=== PATIENT | female | born 1930 | race Caucasian/White ===

== ENCOUNTER 2018-08-07 09:30 | Day surgery (SDC) | payer BC, MEDICARE ==
[2018-08-07 11:20] LABS: BASOPHILS % (AUTO) 1.2 % (0-1); EOSINOPHILS # (AUTO) 0.1 X10'3 (0-0.9); HEMATOCRIT 39.8 % (35.0-45.0); HEMOGLOBIN 13.3 g/dl (12.0-16.0); LYMPHOCYTES # (AUTO) 1.3 X10'3 (1.1-4.8); LYMPHOCYTES % (AUTO) 30.6 % (21-51); MEAN CORPUSCULAR HEMOGLOBIN 33.7 PG (27.0-31.0); MEAN CORPUSCULAR HGB CONC 33.5 % (33.0-36.5); MEAN CORPUSCULAR VOLUME 100.4 FL (78-98); MEAN PLATELET VOLUME 7.8 FL (7.4-10.4); MONOCYTES # (AUTO) 0.5 X10'3 (0-0.9); MONOCYTES % (AUTO) 12.1 % (2-12); NEUTROPHILS # (AUTO) 2.2 X10'3 (1.8-7.7); NEUTROPHILS % (AUTO) 53.1 % (42-75); PLATELET COUNT 201 X10'3 (140-440); RED BLOOD COUNT 3.96 X10'6 (4.20-5.60); RED CELL DISTRIBUTION WIDTH 12.5 % (11.5-14.5); WHITE BLOOD COUNT 4.2 X10'3 (4.5-11.0)
[2018-08-07] MEDS ORDERED: LIDOcaine/PRILOcaine 5gm cream TP ONE (11:20)
[2018-08-07 11:27] LABS: HEMOGLOBIN A1C 5.7 % (4.5-6.2)
[2018-08-07 11:30] LABS: ALANINE AMINOTRANSFERASE 42 U/L (12-78); ALBUMIN 3.2 G/DL (3.4-5.0); ALBUMIN/GLOBULIN RATIO 0.8 (1.1-1.5); ALKALINE PHOSPHATASE 77 IU/L (46-116); ANION GAP 10 (8-16); ASPARTATE AMINO TRANSFERASE 30 U/L (10-37); BILIRUBIN,TOTAL 0.3 MG/DL (0.1-1.0); BLOOD UREA NITROGEN 17 MG/DL (7-18); BUN/CREATININE RATIO 15.9 (6.6-38.0); CALCIUM 8.6 MG/DL (8.5-10.1); CHLORIDE 104 MMOL/L (99-107); CREATININE 1.07 MG/DL (0.40-0.90); GLUCOSE 113 MG/DL (70-104); PREALBUMIN 19.9 MG/DL (19-36); SODIUM 142 MMOL/L (135-145); TOTAL CARBON DIOXIDE 28.5 MMOL/L (24-32); TOTAL PROTEIN 7.1 G/DL (6.4-8.2); eGFR 49 ML/MIN
--- NOTE | 2018-08-07 13:03 | NUR ---
Patient ambulated independently from lobby with a walker. Patient admitted to outpatient wound care clinic for first time visit with physician. Dressing removed, wound cleansed and Emla applied per order. Patient assessed for changes in conditions, medications and medical history. Dr. Cordero at bedside accompanied by RN. Wound assessed, time out performed by MD/RN. Wound debrided as detailed in the physician progress/procedure note. Plan of care discussed with patient. Dressings placed per MD orders. Patient instructed on the signs and symptoms of infection and to call the Wound Center if any occur or to go to the ED if we are closed: Increased pain in wound Increase in drainage from the wound Redness in the skin surrounding the wound Bleeding from the wound Temperature of 101 or greater Patient verbalized understanding of all discharge instructions and plan of care and ambulated independently out to lobby in stable condition with no sign or symptom of distress at time of discharge Addendum: 08/07/18 at 1306 by Keke Lamb RN Amended: Links added.
== END 2018-08-07 10:30 | disposition home or self-care (01) ==
LOC: WOUND CARE 09:30
PROVIDERS: ATTEND Surgery
DX: T81.89XA Other complications of procedures, not elsewhere classified, initial encounter (principal); L97.311 Non-pressure chronic ulcer of right ankle limited to breakdown of skin; L97.512 Non-pressure chronic ulcer of other part of right foot with fat layer exposed; E03.9 Hypothyroidism, unspecified; I10 Essential (primary) hypertension; Z90.710 Acquired absence of both cervix and uterus; Z79.899 Other long term (current) drug therapy; Y83.8 Other surgical procedures as the cause of abnormal reaction of the patient, or of later complication, without mention of misadventure at the time of the procedure
CPT/HCPCS: 36415; 73600; 80053; 83036; 84134; 85025; 85651; 87070; 87075; 87077; 87102; 87176; 87186; A6021; A6206; A6446

== ENCOUNTER 2018-08-15 10:29 | Day surgery (SDC) | payer MEDICARE ==
[2018-08-15] MEDS ORDERED: LIDOcaine 2% 5ml jelly ONE (11:38)
--- NOTE | 2018-08-15 13:39 | NUR ---
Patient ambulated independently from [facility] with a walker. Patient admitted to outpatient wound care for physician visit. Dressing removed, wound cleansed and lidocaine applied per order. Patient assessed for changes in conditions, medications and medical history. Dr. Cordero at bedside accompanied by RN. Wound assessed, time out performed by MD/RN. Wound debrided as detailed in the physician progress/procedure note. Plan of care discussed with patient. Dressings placed per MD orders. Patient instructed on the signs and symptoms of infection and to call the Wound Center if any occur or to go to the ED if we are closed: Increased pain in wound Increase in drainage from the wound Redness in the skin surrounding the wound Bleeding from the wound Temperature of 101 or greater Patient instructed that the weight of their body puts a large amount of pressure on their wounds. This pressure keeps the new tissue from growing and inhibits new blood vessels from forming. Explained that, if they continue to bear weight on a body part that has a wound, the time it takes to heal the wound increases, the wound may get worse or the wound may not heal at all. Patient verbalized understanding of all discharge instructions and plan of care and ambulated independently out to [facility] in stable condition with no sign or symptom of distress at time of discharge. Addendum: 08/15/18 at 1345 by Keke Lamb RN Amended: Links added.
== END 2018-08-15 12:17 | disposition home or self-care (01) ==
LOC: WOUND CARE 10:29
PROVIDERS: ATTEND Surgery
DX: T81.89XD Other complications of procedures, not elsewhere classified, subsequent encounter (principal); L97.311 Non-pressure chronic ulcer of right ankle limited to breakdown of skin; L97.512 Non-pressure chronic ulcer of other part of right foot with fat layer exposed; E03.9 Hypothyroidism, unspecified; I10 Essential (primary) hypertension; Z90.710 Acquired absence of both cervix and uterus; Z79.899 Other long term (current) drug therapy; Y83.8 Other surgical procedures as the cause of abnormal reaction of the patient, or of later complication, without mention of misadventure at the time of the procedure
CPT/HCPCS: 11042; A6209; A6021; A6206; A6446

== ENCOUNTER 2018-08-22 09:34 | Day surgery (SDC) | payer MEDICARE ==
[2018-08-22] MEDS ORDERED: LIDOcaine/PRILOcaine 5gm cream TP ONE (10:06)
--- NOTE | 2018-08-22 11:30 | NUR ---
Patient ambulated with rolling walker accompanied by her from [facility] and was admitted to outpatient wound care for physician visit with Rush Cordero MD. Dressing removed, wound cleansed and Emla cream applied per order. Patient assessed for changes in conditions, medications and medical history. 1030 - Dr. Cordero at bedside accompanied by RN. Wound assessed, time out performed by MD/RN. Wound debrided as detailed in the physician progress/procedure note. Plan of care discussed with patient. Dressings placed per MD orders. Patient instructed on the signs and symptoms of infection and to call the Wound Center if any occur or to go to the ED if we are closed: Increased pain in wound Increase in drainage from the wound Redness in the skin surrounding the wound Bleeding from the wound Temperature of 101 or greater Patient instructed that the weight of their body puts a large amount of pressure on their wounds. This pressure keeps the new tissue from growing and inhibits new blood vessels from forming. Explained that, if they continue to bear weight on a body part that has a wound, the time it takes to heal the wound increases, the wound may get worse or the wound may not heal at all. Patient and verbalized understanding of all discharge instructions and plan of care and patient is rolled on her walker seated by her out to [facility] in stable condition with no sign or symptom of distress at time of discharge.
[2018-08-22] MEDS ORDERED: CIPR-259 PO (13:44)
[2018-08-22] MEDS ORDERED: MIRT30TA8 PO (14:10)
[2018-08-22] MEDS ORDERED: LOSA100T57 PO (14:10)
[2018-08-22] MEDS ORDERED: AMLO5TAB PO (14:10)
[2018-08-22] MEDS ORDERED: CLON-528 PO (14:10)
[2018-08-22] MEDS ORDERED: LYR75C PO (14:10)
[2018-08-22] MEDS ORDERED: MINO2.5T19 PO (14:10)
[2018-08-22] MEDS ORDERED: CARV25TA PO (14:10)
[2018-08-22] MEDS ORDERED: OMEP40CA37 PO (14:10)
[2018-08-22] MEDS ORDERED: MEMA28CA PO (14:10)
[2018-08-22] MEDS ORDERED: SYN0.088T PO (14:10)
[2018-08-22] MEDS ORDERED: COU3T PO ×2 (14:10)
[2018-08-22] MEDS ORDERED: MELO-100 PO (14:10)
[2018-08-22] MEDS ORDERED: VENL-190 (14:10)
[2018-08-22] MEDS ORDERED: HYDR-4353 PO (14:10)
== END 2018-08-22 11:40 | disposition home or self-care (01) ==
LOC: WOUND CARE 09:34
PROVIDERS: ATTEND Surgery
DX: T81.89XD Other complications of procedures, not elsewhere classified, subsequent encounter (principal); L97.312 Non-pressure chronic ulcer of right ankle with fat layer exposed; I83.013 Varicose veins of right lower extremity with ulcer of ankle; E03.9 Hypothyroidism, unspecified; I10 Essential (primary) hypertension; Z90.710 Acquired absence of both cervix and uterus; Z79.899 Other long term (current) drug therapy; Y83.8 Other surgical procedures as the cause of abnormal reaction of the patient, or of later complication, without mention of misadventure at the time of the procedure
CPT/HCPCS: A6021; A6206; A6212; A6446

== ENCOUNTER 2018-08-29 10:45 | Day surgery (SDC) | payer MEDICARE ==
[~2018-08-29 10:45] MED LIST: AMLO5TAB PO; CARV25TA PO; CIPR-259 PO; CLON-528 PO; COU3T PO; HYDR-4353 PO; LOSA100T57 PO; LYR75C PO; MELO-100 PO; MEMA28CA PO; MINO2.5T19 PO; MIRT30TA8 PO; OMEP40CA37 PO; SYN0.088T PO; VENL-190
[2018-08-29] MEDS ORDERED: LIDOcaine 2% 5ml jelly ONE (11:31)
--- NOTE | 2018-08-29 12:49 | NUR ---
Patient ambulated independently from [facility] and was admitted to outpatient wound care for physician visit. Dressings removed, wound cleansed. Patient assessment completed with review of patient's medical history and current medications. -1140 Dr. Cordero at bedside accompanied by RN. Wound assessed, time-out performed by MD/RN. Wound debrided as detailed in the physician progress/procedure note. Plan of care discussed with patient. Dressings placed per MD orders. Patient instructed on the signs and symptoms of infection and to call the Wound Center if any occur or to go to the ED if we are closed: Increased pain in the wound Increase in drainage from the wound Redness in the skin surrounding the wound Bleeding from the wound Temperature of 101F or greater Patient instructed that the weight of their body puts a large amount of pressure on their wounds. This pressure keeps the new tissue from growing and inhibits new blood vessels from forming. Explained that, if they continue to bear weight on a body part that has a wound, the time it takes to heal the wound increases, the wound may get worse, or the wound may not heal at all. Patient verbalized understanding of all discharge instructions and plan of care. Patient ambulated independently out to [facility] in stable condition with no signs or symptoms of distress at time of discharge.
== END 2018-08-29 12:02 | disposition home or self-care (01) ==
LOC: WOUND CARE 10:45
PROVIDERS: ATTEND Surgery
DX: T81.89XD Other complications of procedures, not elsewhere classified, subsequent encounter (principal); L97.312 Non-pressure chronic ulcer of right ankle with fat layer exposed; I83.013 Varicose veins of right lower extremity with ulcer of ankle; E03.9 Hypothyroidism, unspecified; I10 Essential (primary) hypertension; Z90.710 Acquired absence of both cervix and uterus; Z79.899 Other long term (current) drug therapy; Y83.8 Other surgical procedures as the cause of abnormal reaction of the patient, or of later complication, without mention of misadventure at the time of the procedure
CPT/HCPCS: 15271; A6222; Q4133; A6206; A6446

== ENCOUNTER 2018-09-12 10:35 | Day surgery (SDC) | payer MEDICARE ==
[2018-09-12] MEDS ORDERED: LIDOcaine/PRILOcaine 5gm cream TP ONE (10:55)
--- NOTE | 2018-09-12 13:40 | NUR ---
Patient ambulated independently from [facility] and was admitted to outpatient wound care for physician visit with Rush Cordero MD. Dressing removed, wound cleansed and lidocaine applied per order. Patient assessed for changes in conditions, medications and medical history. Dr. Cordero at bedside accompanied by RN. Wound assessed, time out performed by MD/RN. Wound debrided as detailed in the physician progress/procedure note. Plan of care discussed with patient. Dressings placed per MD orders. Patient instructed on the signs and symptoms of infection and to call the Wound Center if any occur or to go to the ED if we are closed: Increased pain in wound Increase in drainage from the wound Redness in the skin surrounding the wound Bleeding from the wound Temperature of 101 or greater Patient instructed that the weight of their body puts a large amount of pressure on their wounds. This pressure keeps the new tissue from growing and inhibits new blood vessels from forming. Explained that, if they continue to bear weight on a body part that has a wound, the time it takes to heal the wound increases, the wound may get worse or the wound may not heal at all. Patient verbalized understanding of all discharge instructions and plan of care and ambulated independently out to [facility] in stable condition with no sign or symptom of distress at time of discharge. Addendum: 09/12/18 at 1341 by Keke Lamb RN Amended: Links added.
== END 2018-09-12 11:39 | disposition home or self-care (01) ==
LOC: WOUND CARE 10:35
PROVIDERS: ATTEND Surgery
DX: T81.89XD Other complications of procedures, not elsewhere classified, subsequent encounter (principal); L97.312 Non-pressure chronic ulcer of right ankle with fat layer exposed; I83.013 Varicose veins of right lower extremity with ulcer of ankle; E03.9 Hypothyroidism, unspecified; I10 Essential (primary) hypertension; Z90.710 Acquired absence of both cervix and uterus; Z79.899 Other long term (current) drug therapy; Y83.8 Other surgical procedures as the cause of abnormal reaction of the patient, or of later complication, without mention of misadventure at the time of the procedure
CPT/HCPCS: 15271; A6209; A6222; Q4133; A6250; A6446

== ENCOUNTER 2018-09-19 10:32 | Outpatient (CLI) | payer MEDICARE ==
[2018-09-19] MEDS ORDERED: LIDOcaine/PRILOcaine 5gm cream TP ONE (11:12)
--- NOTE | 2018-09-19 12:31 | NUR ---
Patient ambulated independently accompanied by her from [facility] and was admitted to outpatient wound care for physician visit with Rush Cordero MD. Dressing removed, wound cleansed and Emla cream applied per order. Patient assessed for changes in conditions, medications and medical history. 1135 - Dr. Cordero at bedside accompanied by RN. Wound assessed by MD; orders written. Plan of care discussed with patient. Dressings placed per MD orders. Patient instructed on the signs and symptoms of infection and to call the Wound Center if any occur or to go to the ED if we are closed: Increased pain in wound Increase in drainage from the wound Redness in the skin surrounding the wound Bleeding from the wound Temperature of 101 or greater Patient instructed that the weight of their body puts a large amount of pressure on their wounds. This pressure keeps the new tissue from growing and inhibits new blood vessels from forming. Explained that, if they continue to bear weight on a body part that has a wound, the time it takes to heal the wound increases, the wound may get worse or the wound may not heal at all. Patient verbalized understanding of all discharge instructions and plan of care and ambulated independently accompanied by her out to [facility] in stable condition with no sign or symptom of distress at time of discharge.
== END 2018-09-19 12:12 | disposition home or self-care (01) ==
LOC: WOUND CARE 10:32
PROVIDERS: ATTEND Surgery
DX: T81.89XD Other complications of procedures, not elsewhere classified, subsequent encounter (principal); L97.312 Non-pressure chronic ulcer of right ankle with fat layer exposed; I83.013 Varicose veins of right lower extremity with ulcer of ankle; E03.9 Hypothyroidism, unspecified; I10 Essential (primary) hypertension; Z90.710 Acquired absence of both cervix and uterus; Z79.899 Other long term (current) drug therapy; Y83.8 Other surgical procedures as the cause of abnormal reaction of the patient, or of later complication, without mention of misadventure at the time of the procedure
CPT/HCPCS: A6209; G0463; A6021; A6206; A6446

== ENCOUNTER 2018-09-26 10:35 | Outpatient (CLI) | payer MEDICARE ==
[~2018-09-26 10:35] MED LIST changes: -CIPR-259 PO
[2018-09-26] MEDS ORDERED: LIDOcaine/PRILOcaine 5gm cream TP ONE (11:22)
--- NOTE | 2018-09-26 13:57 | NUR ---
Patient ambulated independently from [facility] and was admitted to outpatient wound care for physician visit with Rush Cordero MD. Dressing removed, wound cleansed and lidocaine applied per order. Patient assessed for changes in conditions, medications and medical history. Dr. Cordero at bedside accompanied by RN. Wound assessed and no debridement was done. Plan of care discussed with patient. Dressings placed per MD orders. Patient instructed on the signs and symptoms of infection and to call the Wound Center if any occur or to go to the ED if we are closed: Increased pain in wound Increase in drainage from the wound Redness in the skin surrounding the wound Bleeding from the wound Temperature of 101 or greater Patient instructed that the weight of their body puts a large amount of pressure on their wounds. This pressure keeps the new tissue from growing and inhibits new blood vessels from forming. Explained that, if they continue to bear weight on a body part that has a wound, the time it takes to heal the wound increases, the wound may get worse or the wound may not heal at all. Patient verbalized understanding of all discharge instructions and plan of care and ambulated independently out to [facility] in stable condition with no sign or symptom of distress at time of discharge. Addendum: 09/26/18 at 1358 by Keke Lamb RN Amended: Links added.
== END 2018-09-26 11:36 | disposition home or self-care (01) ==
LOC: WOUND CARE 10:35
PROVIDERS: ATTEND Surgery
DX: T81.89XD Other complications of procedures, not elsewhere classified, subsequent encounter (principal); L97.312 Non-pressure chronic ulcer of right ankle with fat layer exposed; I83.013 Varicose veins of right lower extremity with ulcer of ankle; E03.9 Hypothyroidism, unspecified; I10 Essential (primary) hypertension; Z90.710 Acquired absence of both cervix and uterus; Z79.899 Other long term (current) drug therapy; Y83.8 Other surgical procedures as the cause of abnormal reaction of the patient, or of later complication, without mention of misadventure at the time of the procedure
CPT/HCPCS: A6209; G0463; A6021; A6206; A6446

== ENCOUNTER 2018-10-03 10:30 | Day surgery (SDC) | payer MEDICARE ==
[2018-10-03] MEDS ORDERED: LIDOcaine/PRILOcaine 5gm cream TP ONE (10:58)
--- NOTE | 2018-10-03 11:49 | NUR ---
Patient ambulated independently from [facility] and was admitted to outpatient wound care for physician visit. Dressings removed, wound cleansed. Patient assessment completed with review of patient's medical history and current medications. 1130-Dr. Cordero at bedside accompanied by RN. Wound assessed, time-out performed by MD/RN. Wound debrided as detailed in the physician progress/procedure note. Plan of care discussed with patient. Dressings placed per MD orders. Patient instructed on the signs and symptoms of infection and to call the Wound Center if any occur or to go to the ED if we are closed: Increased pain in the wound Increase in drainage from the wound Redness in the skin surrounding the wound Bleeding from the wound Temperature of 101F or greater Patient instructed that the weight of their body puts a large amount of pressure on their wounds. This pressure keeps the new tissue from growing and inhibits new blood vessels from forming. Explained that, if they continue to bear weight on a body part that has a wound, the time it takes to heal the wound increases, the wound may get worse, or the wound may not heal at all. Patient verbalized understanding of all discharge instructions and plan of care. Patient ambulated independently out to [facility] in stable condition with no signs or symptoms of distress at time of discharge.
== END 2018-10-03 11:39 | disposition home or self-care (01) ==
LOC: WOUND CARE 10:30
PROVIDERS: ATTEND Surgery
DX: T81.89XD Other complications of procedures, not elsewhere classified, subsequent encounter (principal); L97.312 Non-pressure chronic ulcer of right ankle with fat layer exposed; I83.013 Varicose veins of right lower extremity with ulcer of ankle; E03.9 Hypothyroidism, unspecified; I10 Essential (primary) hypertension; Z90.710 Acquired absence of both cervix and uterus; Z79.899 Other long term (current) drug therapy; Y83.8 Other surgical procedures as the cause of abnormal reaction of the patient, or of later complication, without mention of misadventure at the time of the procedure
CPT/HCPCS: 97597; A6222; A6021; A6212; A6446

== ENCOUNTER 2018-10-11 10:30 | Day surgery (SDC) | payer MEDICARE ==
[2018-10-11] MEDS ORDERED: LIDOcaine/PRILOcaine 5gm cream TP ONE (11:58)
--- NOTE | 2018-10-11 16:28 | NUR ---
1200 Patient ambulated safely into [facility]. Patient admitted to outpatient wound care clinic for follow-up visit with physician. Dressing removed, wound cleansed. Patient assessed for changes in conditions, medications and medical history. Patient showed no s/s of distress at time of assessment. 9712 at bedside accompanied by RN. Wounds assessed, time out performed and debridement done today as detailed in the physician progress/procedure note. Plan of care discussed with patient. Dressings placed per MD orders. Patient instructed on the signs and symptoms of infection and to call the Wound Center if any occur or to go to the ED if we are closed: Increased pain in wound Increase in drainage from the wound Redness in the skin surrounding the wound Bleeding from the wound Temperature of 101 or greater Patient instructed that the weight of their body puts a large amount of pressure on their wounds. This pressure keeps the new tissue from growing and inhibits new blood vessels from forming. Explained that, if they continue to bear weight on a body part that has a wound, the time it takes to heal the wound increases, the wound may get worse or the wound may not heal at all. Patient verbalized understanding of all discharge instructions and plan of care. Patient ambulated independently out to [facility] and is in stable condition with no sign or symptom of distress at time of discharge.
== END 2018-10-11 12:50 | disposition home or self-care (01) ==
LOC: WOUND CARE 10:30
PROVIDERS: ATTEND Surgery
DX: T81.89XD Other complications of procedures, not elsewhere classified, subsequent encounter (principal); L97.312 Non-pressure chronic ulcer of right ankle with fat layer exposed; I83.013 Varicose veins of right lower extremity with ulcer of ankle; E03.9 Hypothyroidism, unspecified; I10 Essential (primary) hypertension; Z90.710 Acquired absence of both cervix and uterus; Z79.899 Other long term (current) drug therapy; Y83.8 Other surgical procedures as the cause of abnormal reaction of the patient, or of later complication, without mention of misadventure at the time of the procedure
CPT/HCPCS: 97597; A6021; A6206; A6212

== ENCOUNTER 2018-10-17 10:27 | Outpatient (CLI) | payer MEDICARE ==
--- NOTE | 2018-10-17 12:24 | NUR ---
Patient ambulated independently from [facility] and was admitted to outpatient wound care for physician visit with Rush Cordero MD. Dressing removed and wound cleansed. Patient assessed for changes in conditions, medications and medical history. Dr. Cordero at bedside accompanied by RN. Wound assessed and no debridement was done. Plan of care discussed with patient. Dressings placed per MD orders. Patient instructed on the signs and symptoms of infection and to call the Wound Center if any occur or to go to the ED if we are closed: Increased pain in wound Increase in drainage from the wound Redness in the skin surrounding the wound Bleeding from the wound Temperature of 101 or greater Patient instructed that the weight of their body puts a large amount of pressure on their wounds. This pressure keeps the new tissue from growing and inhibits new blood vessels from forming. Explained that, if they continue to bear weight on a body part that has a wound, the time it takes to heal the wound increases, the wound may get worse or the wound may not heal at all. Patient verbalized understanding of all discharge instructions and plan of care and ambulated independently out to [facility] in stable condition with no sign or symptom of distress at time of discharge. Addendum: 10/17/18 at 1229 by Keke Lamb RN Amended: Links added.
== END 2018-10-17 12:15 | disposition home or self-care (01) ==
LOC: WOUND CARE 10:27 → EDSTATUS 10:30 → WOUND CARE 12:15
PROVIDERS: ATTEND Surgery
DX: T81.89XD Other complications of procedures, not elsewhere classified, subsequent encounter (principal); L97.312 Non-pressure chronic ulcer of right ankle with fat layer exposed; I83.013 Varicose veins of right lower extremity with ulcer of ankle; E03.9 Hypothyroidism, unspecified; I10 Essential (primary) hypertension; Z90.710 Acquired absence of both cervix and uterus; Z79.899 Other long term (current) drug therapy; Y83.8 Other surgical procedures as the cause of abnormal reaction of the patient, or of later complication, without mention of misadventure at the time of the procedure
CPT/HCPCS: A6222; G0463; A6021; A6212

== ENCOUNTER 2018-10-24 10:26 | Day surgery (SDC) | payer MEDICARE ==
[2018-10-24] MEDS ORDERED: LIDOcaine/PRILOcaine 5gm cream TP ONE (10:53)
--- NOTE | 2018-10-24 11:40 | NUR ---
Patient ambulated independently from lob accompanied by and was admitted to outpatient wound care for physician visit with Rush Cordero MD. Dressing removed, wound cleansed. Patient assessed for changes in conditions, medications and medical history. 1100 - Dr. Cordero at bedside accompanied by RN. Wound assessed, time out performed by MD/RN. Wound debrided and procedure performed as detailed in the physician progress/procedure note. Plan of care discussed with patient. Dressings placed per MD orders. Patient instructed on the signs and symptoms of infection and to call the Wound Center if any occur or to go to the ED if we are closed: Increased pain in wound Increase in drainage from the wound Redness in the skin surrounding the wound Bleeding from the wound Temperature of 101 or greater Patient instructed that the weight of their body puts a large amount of pressure on their wounds. This pressure keeps the new tissue from growing and inhibits new blood vessels from forming. Explained that, if they continue to bear weight on a body part that has a wound, the time it takes to heal the wound increases, the wound may get worse or the wound may not heal at all. Patient verbalized understanding of all discharge instructions and plan of care and ambulated independently out to [facility] in stable condition with no sign or symptom of distress at time of discharge.
== END 2018-10-24 12:05 | disposition home or self-care (01) ==
LOC: WOUND CARE 10:26
PROVIDERS: ATTEND Surgery
DX: T81.89XD Other complications of procedures, not elsewhere classified, subsequent encounter (principal); L97.312 Non-pressure chronic ulcer of right ankle with fat layer exposed; I83.013 Varicose veins of right lower extremity with ulcer of ankle; E03.9 Hypothyroidism, unspecified; I10 Essential (primary) hypertension; Z90.710 Acquired absence of both cervix and uterus; Z79.899 Other long term (current) drug therapy; Y83.8 Other surgical procedures as the cause of abnormal reaction of the patient, or of later complication, without mention of misadventure at the time of the procedure
CPT/HCPCS: 15271; A6209; A6222; Q4133; A6250; A6446

== ENCOUNTER 2018-10-31 10:30 | Outpatient (CLI) | payer MEDICARE ==
[2018-10-31] MEDS ORDERED: LIDOcaine/PRILOcaine 5gm cream TP ONE (11:32)
--- NOTE | 2018-10-31 12:02 | NUR ---
Patient ambulated independently from [facility] and was admitted to outpatient wound care for physician visit with Rush Cordero MD. Dressing removed, wound cleansed and Emla cream applied per order. Patient assessed for changes in conditions, medications and medical history. Dr. Cordero at bedside accompanied by RN. Wound assessed and no debridement was done. Plan of care discussed with patient. Dressings placed per MD orders. Patient instructed on the signs and symptoms of infection and to call the Wound Center if any occur or to go to the ED if we are closed: Increased pain in wound Increase in drainage from the wound Redness in the skin surrounding the wound Bleeding from the wound Temperature of 101 or greater Patient instructed that the weight of their body puts a large amount of pressure on their wounds. This pressure keeps the new tissue from growing and inhibits new blood vessels from forming. Explained that, if they continue to bear weight on a body part that has a wound, the time it takes to heal the wound increases, the wound may get worse or the wound may not heal at all. Patient verbalized understanding of all discharge instructions and plan of care and ambulated independently out to [facility] in stable condition with no sign or symptom of distress at time of discharge. Addendum: 10/31/18 at 1203 by Keke Lamb RN Amended: Links added.
== END 2018-10-31 11:57 | disposition home or self-care (01) ==
LOC: WOUND CARE 10:30 → EDSTATUS 10:30 → WOUND CARE 11:57
PROVIDERS: ATTEND Surgery
DX: T81.89XD Other complications of procedures, not elsewhere classified, subsequent encounter (principal); I83.013 Varicose veins of right lower extremity with ulcer of ankle; L97.312 Non-pressure chronic ulcer of right ankle with fat layer exposed; E03.9 Hypothyroidism, unspecified; I10 Essential (primary) hypertension; Z90.710 Acquired absence of both cervix and uterus; Z79.899 Other long term (current) drug therapy; Y83.8 Other surgical procedures as the cause of abnormal reaction of the patient, or of later complication, without mention of misadventure at the time of the procedure
CPT/HCPCS: A6021; A6206; A6212; G0463

== ENCOUNTER 2018-11-07 10:25 | Day surgery (SDC) | payer MEDICARE ==
--- NOTE | 2018-11-07 12:00 | NUR ---
Patient ambulated independently accompanied by from [facility] and was admitted to outpatient wound care for physician visit with Rush Cordero MD. Dressing removed, wound cleansed. Patient assessed for changes in conditions, medications and medical history. 1135 - Dr. Cordero at bedside accompanied by RN. Wound assessed, time out performed by MD/RN. Wound debrided as detailed in the physician progress/procedure note. Plan of care discussed with patient. Dressings placed per MD orders. Patient instructed on the signs and symptoms of infection and to call the Wound Center if any occur or to go to the ED if we are closed: Increased pain in wound Increase in drainage from the wound Redness in the skin surrounding the wound Bleeding from the wound Temperature of 101 or greater Patient instructed that the weight of their body puts a large amount of pressure on their wounds. This pressure keeps the new tissue from growing and inhibits new blood vessels from forming. Explained that, if they continue to bear weight on a body part that has a wound, the time it takes to heal the wound increases, the wound may get worse or the wound may not heal at all. Patient verbalized understanding of all discharge instructions and plan of care and ambulated independently accompanied by her out to [facility] in stable condition with no sign or symptom of distress at time of discharge.
== END 2018-11-07 11:50 | disposition home or self-care (01) ==
LOC: WOUND CARE 10:25
PROVIDERS: ATTEND Surgery
DX: T81.89XD Other complications of procedures, not elsewhere classified, subsequent encounter (principal); I83.013 Varicose veins of right lower extremity with ulcer of ankle; L97.312 Non-pressure chronic ulcer of right ankle with fat layer exposed; E03.9 Hypothyroidism, unspecified; I10 Essential (primary) hypertension; Z90.710 Acquired absence of both cervix and uterus; Z79.899 Other long term (current) drug therapy; Y83.8 Other surgical procedures as the cause of abnormal reaction of the patient, or of later complication, without mention of misadventure at the time of the procedure
CPT/HCPCS: 97597; A6021; A6206; A6212

== ENCOUNTER 2018-11-14 10:26 | Day surgery (SDC) | payer MEDICARE ==
[2018-11-14] MEDS ORDERED: LIDOcaine/PRILOcaine 5gm cream TP ONE (10:56)
--- NOTE | 2018-11-14 13:10 | NUR ---
Patient ambulated independently from [facility] and was admitted to outpatient wound care for physician visit with Rush Cordero MD. Dressing removed, wound cleansed and lidocaine applied per order. Patient assessed for changes in conditions, medications and medical history. Dr. Cordero at bedside accompanied by RN. Wound assessed, time out performed by MD/RN. Wound debrided as detailed in the physician progress/procedure note. Plan of care discussed with patient. Dressings placed per MD orders. Patient instructed on the signs and symptoms of infection and to call the Wound Center if any occur or to go to the ED if we are closed: Increased pain in wound Increase in drainage from the wound Redness in the skin surrounding the wound Bleeding from the wound Temperature of 101 or greater Patient instructed that the weight of their body puts a large amount of pressure on their wounds. This pressure keeps the new tissue from growing and inhibits new blood vessels from forming. Explained that, if they continue to bear weight on a body part that has a wound, the time it takes to heal the wound increases, the wound may get worse or the wound may not heal at all. Patient verbalized understanding of all discharge instructions and plan of care and ambulated independently out to [facility] in stable condition with no sign or symptom of distress at time of discharge. Addendum: 11/14/18 at 1311 by Keke Lamb RN Amended: Links added.
== END 2018-11-14 11:00 | disposition home or self-care (01) ==
LOC: WOUND CARE 10:26
PROVIDERS: ATTEND Surgery
DX: T81.89XD Other complications of procedures, not elsewhere classified, subsequent encounter (principal); I83.013 Varicose veins of right lower extremity with ulcer of ankle; L97.312 Non-pressure chronic ulcer of right ankle with fat layer exposed; E03.9 Hypothyroidism, unspecified; I10 Essential (primary) hypertension; Z90.710 Acquired absence of both cervix and uterus; Z79.899 Other long term (current) drug therapy; Y83.8 Other surgical procedures as the cause of abnormal reaction of the patient, or of later complication, without mention of misadventure at the time of the procedure
CPT/HCPCS: A6209; C5271; Q4102; A6250

== ENCOUNTER 2018-11-21 10:10 | Outpatient (CLI) | payer MEDICARE ==
--- NOTE | 2018-11-21 15:37 | NUR ---
Patient ambulated independently from [facility] and was admitted to outpatient wound care for physician visit with Rush Cordero MD. Dressing removed and wound cleansed. Patient assessed for changes in conditions, medications and medical history. Dr. Cordero at bedside accompanied by RN. Wound assessed and no debridement was done. Plan of care discussed with patient. Dressings placed per MD orders. Patient instructed on the signs and symptoms of infection and to call the Wound Center if any occur or to go to the ED if we are closed: Increased pain in wound Increase in drainage from the wound Redness in the skin surrounding the wound Bleeding from the wound Temperature of 101 or greater Patient instructed that the weight of their body puts a large amount of pressure on their wounds. This pressure keeps the new tissue from growing and inhibits new blood vessels from forming. Explained that, if they continue to bear weight on a body part that has a wound, the time it takes to heal the wound increases, the wound may get worse or the wound may not heal at all. Patient verbalized understanding of all discharge instructions and plan of care and ambulated independently out to [facility] in stable condition with no sign or symptom of distress at time of discharge. Addendum: 11/21/18 at 1540 by Keke Lamb RN Amended: Links added.
== END 2018-11-21 12:00 | disposition home or self-care (01) ==
LOC: WOUND CARE 10:10 → EDSTATUS 10:30 → WOUND CARE 12:00
PROVIDERS: ATTEND Surgery
DX: T81.89XD Other complications of procedures, not elsewhere classified, subsequent encounter (principal); I83.013 Varicose veins of right lower extremity with ulcer of ankle; L97.312 Non-pressure chronic ulcer of right ankle with fat layer exposed; E03.9 Hypothyroidism, unspecified; I10 Essential (primary) hypertension; Z90.710 Acquired absence of both cervix and uterus; Z79.899 Other long term (current) drug therapy; Y83.8 Other surgical procedures as the cause of abnormal reaction of the patient, or of later complication, without mention of misadventure at the time of the procedure
CPT/HCPCS: A6206; A6212; A6446; G0463

== ENCOUNTER 2018-11-28 10:30 | Day surgery (SDC) | payer MEDICARE ==
[2018-11-28] MEDS ORDERED: LIDOcaine/PRILOcaine 5gm cream TP ONE (10:40)
--- NOTE | 2018-11-28 13:57 | NUR ---
Patient ambulated independently from lobby with a walker. Patient admitted to outpatient wound care clinic for physician visit with Rush Cordero MD. Dressing removed, wound cleansed and Emla cream applied per order. Patient assessed for changes in conditions, medications and medical history. Dr. Cordero at bedside accompanied by RN. Wound assessed, time out performed by MD/RN. Wound debrided as detailed in the physician progress/procedure note. Plan of care discussed with patient. Dressings placed per MD orders. Patient instructed on the signs and symptoms of infection and to call the Wound Center if any occur or to go to the ED if we are closed: Increased pain in wound Increase in drainage from the wound Redness in the skin surrounding the wound Bleeding from the wound Temperature of 101 or greater Patient instructed that the weight of their body puts a large amount of pressure on their wounds. This pressure keeps the new tissue from growing and inhibits new blood vessels from forming. Explained that, if they continue to bear weight on a body part that has a wound, the time it takes to heal the wound increases, the wound may get worse or the wound may not heal at all. Patient verbalized understanding of all discharge instructions and plan of care and ambulated independently out to lobby in stable condition with no sign or symptom of distress at time of discharge. Addendum: 11/28/18 at 1400 by Keke Lamb RN Amended: Links added.
== END 2018-11-28 11:36 | disposition home or self-care (01) ==
LOC: WOUND CARE 10:30
PROVIDERS: ATTEND Surgery
DX: T81.89XD Other complications of procedures, not elsewhere classified, subsequent encounter (principal); I83.013 Varicose veins of right lower extremity with ulcer of ankle; L97.312 Non-pressure chronic ulcer of right ankle with fat layer exposed; E03.9 Hypothyroidism, unspecified; I10 Essential (primary) hypertension; Z90.710 Acquired absence of both cervix and uterus; Z79.899 Other long term (current) drug therapy; Y83.8 Other surgical procedures as the cause of abnormal reaction of the patient, or of later complication, without mention of misadventure at the time of the procedure
CPT/HCPCS: 97597; A6209; A6021; A6206

== ENCOUNTER 2018-12-12 10:07 | Day surgery (SDC) | payer MEDICARE ==
[2018-12-12] MEDS ORDERED: LIDOcaine/PRILOcaine 5gm cream TP ONE (11:06)
--- NOTE | 2018-12-12 14:06 | NUR ---
Patient ambulated independently from [facility] and was admitted to outpatient wound care for physician visit with Rush Cordero MD. Dressing removed, wound cleansed and Emla cream applied per order. Patient assessed for changes in conditions, medications and medical history. Dr. Cordero at bedside accompanied by RN. Wound assessed, time out performed by MD/RN. Wound debrided as detailed in the physician progress/procedure note. Plan of care discussed with patient. Dressings placed per MD orders. Patient instructed on the signs and symptoms of infection and to call the Wound Center if any occur or to go to the ED if we are closed: Increased pain in wound Increase in drainage from the wound Redness in the skin surrounding the wound Bleeding from the wound Temperature of 101 or greater Patient instructed that the weight of their body puts a large amount of pressure on their wounds. This pressure keeps the new tissue from growing and inhibits new blood vessels from forming. Explained that, if they continue to bear weight on a body part that has a wound, the time it takes to heal the wound increases, the wound may get worse or the wound may not heal at all. Patient verbalized understanding of all discharge instructions and plan of care and ambulated independently out to [facility] in stable condition with no sign or symptom of distress at time of discharge. Addendum: 12/12/18 at 1407 by Keke Lamb RN Amended: Links added.
== END 2018-12-12 12:15 | disposition home or self-care (01) ==
LOC: WOUND CARE 10:07
PROVIDERS: ATTEND Surgery
DX: T81.89XD Other complications of procedures, not elsewhere classified, subsequent encounter (principal); I83.013 Varicose veins of right lower extremity with ulcer of ankle; L97.312 Non-pressure chronic ulcer of right ankle with fat layer exposed; E03.9 Hypothyroidism, unspecified; I10 Essential (primary) hypertension; Z90.710 Acquired absence of both cervix and uterus; Z79.899 Other long term (current) drug therapy; Y83.8 Other surgical procedures as the cause of abnormal reaction of the patient, or of later complication, without mention of misadventure at the time of the procedure
CPT/HCPCS: 97597; A6209; A6021; A6206; A6446

== ENCOUNTER 2018-12-19 10:24 | Day surgery (SDC) | payer MEDICARE ==
[2018-12-19] MEDS ORDERED: LIDOcaine/PRILOcaine 5gm cream TP ONE (11:00)
--- NOTE | 2018-12-19 14:08 | NUR ---
Patient ambulated independently from [facility] and was admitted to outpatient wound care for physician visit with Rush Cordero MD. Dressing removed, wound cleansed and Emla cream applied per order. Patient assessed for changes in conditions, medications and medical history. Dr. Cordero at bedside accompanied by RN. Wound assessed, time out performed by MD/RN. Wound debrided as detailed in the physician progress/procedure note. did a marker for an x-ray with a staple. X-ray done and staple removed by . Plan of care discussed with patient. Dressings placed per MD orders. Patient instructed on the signs and symptoms of infection and to call the Wound Center if any occur or to go to the ED if we are closed: Increased pain in wound Increase in drainage from the wound Redness in the skin surrounding the wound Bleeding from the wound Temperature of 101 or greater Patient instructed that the weight of their body puts a large amount of pressure on their wounds. This pressure keeps the new tissue from growing and inhibits new blood vessels from forming. Explained that, if they continue to bear weight on a body part that has a wound, the time it takes to heal the wound increases, the wound may get worse or the wound may not heal at all. Patient verbalized understanding of all discharge instructions and plan of care and ambulated independently out to [facility] in stable condition with no sign or symptom of distress at time of discharge. Addendum: 12/19/18 at 1411 by Keke Lamb RN Amended: Links added.
== END 2018-12-19 12:05 | disposition home or self-care (01) ==
LOC: WOUND CARE 10:24
PROVIDERS: ATTEND Surgery
DX: T81.89XD Other complications of procedures, not elsewhere classified, subsequent encounter (principal); I83.013 Varicose veins of right lower extremity with ulcer of ankle; L97.312 Non-pressure chronic ulcer of right ankle with fat layer exposed; E03.9 Hypothyroidism, unspecified; I10 Essential (primary) hypertension; Z90.710 Acquired absence of both cervix and uterus; Z79.899 Other long term (current) drug therapy; Y83.8 Other surgical procedures as the cause of abnormal reaction of the patient, or of later complication, without mention of misadventure at the time of the procedure
CPT/HCPCS: 73600; 97597; A6209; A6021; A6206; A6446

== ENCOUNTER 2018-12-26 10:08 | Day surgery (SDC) | payer MEDICARE ==
--- NOTE | 2018-12-26 12:30 | NUR ---
Patient ambulated independently from [facility] and was admitted to outpatient wound care for physician visit with Rush Cordero MD. Dressing removed, wound cleansed and lidocaine applied per order. Patient assessed for changes in conditions, medications and medical history. Dr. Cordero at bedside accompanied by RN. Wound assessed, time out performed by MD/RN. Wound debrided as detailed in the physician progress/procedure note. Plan of care discussed with patient. Dressings placed per MD orders. Patient instructed on the signs and symptoms of infection and to call the Wound Center if any occur or to go to the ED if we are closed: Increased pain in wound Increase in drainage from the wound Redness in the skin surrounding the wound Bleeding from the wound Temperature of 101 or greater Patient instructed that the weight of their body puts a large amount of pressure on their wounds. This pressure keeps the new tissue from growing and inhibits new blood vessels from forming. Explained that, if they continue to bear weight on a body part that has a wound, the time it takes to heal the wound increases, the wound may get worse or the wound may not heal at all. Patient verbalized understanding of all discharge instructions and plan of care and ambulated independently out to [facility] in stable condition with no sign or symptom of distress at time of discharge. Addendum: 12/26/18 at 1231 by Keke Lamb RN Amended: Links added.
== END 2018-12-26 11:25 | disposition home or self-care (01) ==
LOC: WOUND CARE 10:08
PROVIDERS: ATTEND Surgery
DX: T81.89XD Other complications of procedures, not elsewhere classified, subsequent encounter (principal); I83.013 Varicose veins of right lower extremity with ulcer of ankle; L97.312 Non-pressure chronic ulcer of right ankle with fat layer exposed; E03.9 Hypothyroidism, unspecified; I10 Essential (primary) hypertension; Z90.710 Acquired absence of both cervix and uterus; Z79.899 Other long term (current) drug therapy; Y83.8 Other surgical procedures as the cause of abnormal reaction of the patient, or of later complication, without mention of misadventure at the time of the procedure
CPT/HCPCS: 15271; A6222; Q4133; A6250; A6446

== ENCOUNTER 2019-01-02 10:30 | Outpatient (CLI) | payer MEDICARE ==
--- NOTE | 2019-01-02 12:45 | NUR ---
Patient ambulated with walker accompanied by from [facility] and was admitted to outpatient wound care for physician visit with Rush Cordero MD. Dressing removed, wound cleansed. Patient assessed for changes in conditions, medications and medical history. 1230 - Dr. Cordero at bedside accompanied by RN. Wound assessed by MD, orders written. Plan of care discussed with patient. Dressings placed per MD orders. Patient instructed on the signs and symptoms of infection and to call the Wound Center if any occur or to go to the ED if we are closed: Increased pain in wound Increase in drainage from the wound Redness in the skin surrounding the wound Bleeding from the wound Temperature of 101 or greater Patient instructed that the weight of their body puts a large amount of pressure on their wounds. This pressure keeps the new tissue from growing and inhibits new blood vessels from forming. Explained that, if they continue to bear weight on a body part that has a wound, the time it takes to heal the wound increases, the wound may get worse or the wound may not heal at all. Patient verbalized understanding of all discharge instructions and plan of care and ambulated with walker accompanied by out to [facility] in stable condition with no sign or symptom of distress at time of discharge.
== END 2019-01-02 12:44 | disposition home or self-care (01) ==
LOC: WOUND CARE 10:30 → EDSTATUS 10:30 → WOUND CARE 12:44
PROVIDERS: ATTEND Surgery
DX: T81.89XD Other complications of procedures, not elsewhere classified, subsequent encounter (principal); I83.013 Varicose veins of right lower extremity with ulcer of ankle; L97.312 Non-pressure chronic ulcer of right ankle with fat layer exposed; E03.9 Hypothyroidism, unspecified; I10 Essential (primary) hypertension; Z90.710 Acquired absence of both cervix and uterus; Z79.899 Other long term (current) drug therapy; Y83.8 Other surgical procedures as the cause of abnormal reaction of the patient, or of later complication, without mention of misadventure at the time of the procedure
CPT/HCPCS: A6209; A6222; G0463

== ENCOUNTER 2019-01-09 09:45 | Day surgery (SDC) | payer MEDICARE ==
[2019-01-09] MEDS ORDERED: LIDOcaine/PRILOcaine 5gm cream TP ONE (10:05)
--- NOTE | 2019-01-09 13:24 | NUR ---
Patient ambulated independently from [facility] and was admitted to outpatient wound care for physician visit with Rush Cordero MD. Dressing removed, wound cleansed and Emla cream applied per order. Patient assessed for changes in conditions, medications and medical history. Dr. Cordero at bedside accompanied by RN. Wound assessed, time out performed by MD/RN. Wound debrided as detailed in the physician progress/procedure note. Plan of care discussed with patient. Dressings placed per MD orders. Patient instructed on the signs and symptoms of infection and to call the Wound Center if any occur or to go to the ED if we are closed: Increased pain in wound Increase in drainage from the wound Redness in the skin surrounding the wound Bleeding from the wound Temperature of 101 or greater Patient instructed that the weight of their body puts a large amount of pressure on their wounds. This pressure keeps the new tissue from growing and inhibits new blood vessels from forming. Explained that, if they continue to bear weight on a body part that has a wound, the time it takes to heal the wound increases, the wound may get worse or the wound may not heal at all. Patient verbalized understanding of all discharge instructions and plan of care and ambulated independently out to [facility] in stable condition with no sign or symptom of distress at time of discharge. Addendum: 01/09/19 at 1325 by Keke Lamb RN Amended: Links added.
== END 2019-01-09 10:45 | disposition home or self-care (01) ==
LOC: WOUND CARE 09:45
PROVIDERS: ATTEND Surgery
DX: T81.89XD Other complications of procedures, not elsewhere classified, subsequent encounter (principal); I83.013 Varicose veins of right lower extremity with ulcer of ankle; L97.312 Non-pressure chronic ulcer of right ankle with fat layer exposed; E03.9 Hypothyroidism, unspecified; I10 Essential (primary) hypertension; Z90.710 Acquired absence of both cervix and uterus; Z79.899 Other long term (current) drug therapy; Y83.8 Other surgical procedures as the cause of abnormal reaction of the patient, or of later complication, without mention of misadventure at the time of the procedure
CPT/HCPCS: 15271; A6209; A6222; A6446; Q4133; A6250

== ENCOUNTER 2019-02-07 09:40 | Outpatient (CLI) | payer MEDICARE ==
--- NOTE | 2019-02-07 15:52 | NUR ---
Patient ambulated independently from [facility] and was admitted to outpatient wound care for physician visit with Rush Cordero MD. Dressing removed, wound cleansed and patient assessed for changes in conditions, medications and medical history. Dr. Cordero at bedside accompanied by RN. Wound assessed and no debridement was done. Plan of care discussed with patient. Dressings placed per MD orders. Patient instructed on the signs and symptoms of infection and to call the Wound Center if any occur or to go to the ED if we are closed: Increased pain in wound Increase in drainage from the wound Redness in the skin surrounding the wound Bleeding from the wound Temperature of 101 or greater Patient instructed that the weight of their body puts a large amount of pressure on their wounds. This pressure keeps the new tissue from growing and inhibits new blood vessels from forming. Explained that, if they continue to bear weight on a body part that has a wound, the time it takes to heal the wound increases, the wound may get worse or the wound may not heal at all. Patient verbalized understanding of all discharge instructions and plan of care and ambulated independently out to [facility] in stable condition with no sign or symptom of distress at time of discharge. Addendum: 02/07/19 at 1554 by Keke Lamb RN Amended: Links added.
== END 2019-02-07 12:26 | disposition home or self-care (01) ==
LOC: WOUND CARE 09:40 → EDSTATUS 10:00 → WOUND CARE 12:26
PROVIDERS: ATTEND Surgery
DX: T81.89XD Other complications of procedures, not elsewhere classified, subsequent encounter (principal); I83.013 Varicose veins of right lower extremity with ulcer of ankle; L97.312 Non-pressure chronic ulcer of right ankle with fat layer exposed; E03.9 Hypothyroidism, unspecified; I10 Essential (primary) hypertension; Z90.710 Acquired absence of both cervix and uterus; Z79.899 Other long term (current) drug therapy; Y83.8 Other surgical procedures as the cause of abnormal reaction of the patient, or of later complication, without mention of misadventure at the time of the procedure
CPT/HCPCS: A4663; A6021; A6154; A6212; G0463